=== PATIENT | female | born 1980 | race Caucasian/White ===

== ENCOUNTER 2016-12-04 20:29 | Observation (INO) | payer OTHER ==
[~2016-12-04] VITALS: Ht 160 cm; Wt 87.8 kg
[2016-12-04] MEDS ORDERED: LISI-542 PO (20:44)
[2016-12-04] MEDS ORDERED: METF500T4 PO (20:44)
[2016-12-04] MEDS ORDERED: LISINOPRIL 5 MG TAB PO SCH (21:00)
[2016-12-04 22:25] LABS: BASO # 0.1 K/mm3 (0.0-0.2); BASO % 0.5 % (0.0-1.0); EOS # 0.2 K/mm3 (0.0-0.50); EOS % 1.6 % (0.0-3.0); LARGE UNSTAINED CELL # 0.2 K/mm3 (0.0-0.4); LARGE UNSTAINED CELL % 1.2 % (0.0-4.0); LYMPH # 3.9 K/mm3 (1.5-4.5); LYMPH % 27.8 % (24.0-44.0); MEAN CORPUSCULAR HEMOGLOBIN 29.9 pg (27.0-33.0); MEAN CORPUSCULAR HGB CONC 32.8 g/dl (32.0-36.5); MEAN CORPUSCULAR VOLUME 91.1 fl (80.0-96.0); MONO # 0.5 K/mm3 (0.0-0.8); MONO % 3.5 % (0.0-5.0); NEUTROPHILS # 8.7 K/mm3 (1.8-7.7); NEUTROPHILS % 65.4 % (36.0-66.0); PLATELET COUNT, AUTOMATED 326 k/mm3 (150-450); RED CELL DISTRIBUTION WIDTH 12.8 % (11.5-14.5); WHITE BLOOD COUNT 13.4 K/mm3 (4.0-10.0)
[2016-12-04 22:33] LABS: INR 0.98
[2016-12-04 22:44] LABS: CONTROL LINE HCG INT CTR LINE PRESENT
[2016-12-04 22:58] LABS: ANION GAP 8 MEQ/L (8-16); BLOOD UREA NITROGEN 16 MG/DL (7-18); CALCIUM LEVEL 8.9 MG/DL (8.5-10.1); CARBON DIOXIDE LEVEL 25 MEQ/L (21-32); CHLORIDE LEVEL 107 MEQ/L (98-107); CREATININE FOR GFR 0.71 MG/DL (0.55-1.02); GLOMERULAR FILTRATION RATE > 60.0 (>60); GLUCOSE, FASTING 83 MG/DL (70-105); POTASSIUM SERUM 3.8 MEQ/L (3.5-5.1); SODIUM LEVEL 140 MEQ/L (136-145)
--- NOTE | 2016-12-04 23:40 | REPUSA ---
CT of the head Clinical history: CVA. Technique: Multiple axial CT images were obtained through the head without administration of contrast . Comparison: None. Findings: The ventricles and sulci are symmetric bilaterally. There is no evidence of acute hemorrhag e or infarct. There is no midline shift, mass effect, or extra-axial fluid collection. The osseous st ructures are unremarkable. The visualized paranasal sinuses and mastoid air cells are clear. Impression: Negative study.
[2016-12-05] MEDS ORDERED: TYLE500T78 PO (00:12)
[2016-12-05] MEDS ORDERED: ALBU17IN INH (00:12)
[2016-12-05] MEDS ORDERED: ASPIRIN 325 MG TAB PO ONE (00:15)
[2016-12-05] MEDS ORDERED: ACETAMINOPHEN TAB 650MG DOSE (2X325MG) PO PRN (00:15)
[2016-12-05] MEDS ORDERED: PERCOCET 5MG/325MG TAB PO PRN (00:15)
[2016-12-05] MEDS ORDERED: ONDANSETRON 4MG/2ML VIAL (J2405) IV PRN (00:15)
[2016-12-05] MEDS ORDERED: ALBUTEROL 90 MCG/ACT 8GM HFA INHALER INH PRN (00:30)
--- NOTE | 2016-12-05 01:55 | REP ---
Clinical: Cerebrovascular accident . Comparison: None . Findings: The mediastinum and cardiac silhouette are stable and within normal limits for portable technique. The lung huggins are clear without acute consolidation, effusion, or pneumothorax. Skeletal structures are intact. Impression: Normal portable chest x-ray Signed by Mamadou Hannon MD 12/05/2016 01:47 A
[2016-12-05 02:30] VITALS: BP 117/68
[2016-12-05 02:53] VITALS: BP 117/68
[2016-12-05 04:00] VITALS: BP 120/57
[2016-12-05 06:37] LABS: BASO % 0.5 % (0.0-1.0); EOS # 0.3 K/mm3 (0.0-0.50); EOS % 2.7 % (0.0-3.0); LARGE UNSTAINED CELL # 0.1 K/mm3 (0.0-0.4); LARGE UNSTAINED CELL % 1.5 % (0.0-4.0); LYMPH # 3.8 K/mm3 (1.5-4.5); LYMPH % 37.9 % (24.0-44.0); MEAN CORPUSCULAR HEMOGLOBIN 30.2 pg (27.0-33.0); MEAN CORPUSCULAR HGB CONC 33.3 g/dl (32.0-36.5); MEAN CORPUSCULAR VOLUME 90.8 fl (80.0-96.0); MONO # 0.5 K/mm3 (0.0-0.8); MONO % 4.8 % (0.0-5.0); NEUTROPHILS # 5.1 K/mm3 (1.8-7.7); NEUTROPHILS % 52.6 % (36.0-66.0); PLATELET COUNT, AUTOMATED 319 k/mm3 (150-450); RED CELL DISTRIBUTION WIDTH 12.9 % (11.5-14.5); WHITE BLOOD COUNT 9.7 K/mm3 (4.0-10.0)
[2016-12-05 06:46] LABS: ANION GAP 8 MEQ/L (8-16); BLOOD UREA NITROGEN 17 MG/DL (7-18); CALCIUM LEVEL 8.7 MG/DL (8.5-10.1); CARBON DIOXIDE LEVEL 24 MEQ/L (21-32); CHLORIDE LEVEL 108 MEQ/L (98-107); CREATININE FOR GFR 0.56 MG/DL (0.55-1.02); GLOMERULAR FILTRATION RATE > 60.0 (>60); GLUCOSE, FASTING 89 MG/DL (70-105); POTASSIUM SERUM 3.7 MEQ/L (3.5-5.1); SODIUM LEVEL 140 MEQ/L (136-145)
[2016-12-05 08:00] VITALS: BP 123/67
[2016-12-05] MEDS ORDERED: LORazepam 2 MG/ML VIAL (J2060) IV STA (08:55)
[2016-12-05] MEDS ORDERED: ASPIRIN 81 MG CHEW TABLET PO SCH (09:00)
[2016-12-05] MEDS ORDERED: ENOXAPARIN 40 MG/0.4 ML SYRINGE (J1650) SC SCH (09:00)
--- NOTE | 2016-12-05 09:27 | ECGEPIP ---
Stationary ECG Study [facility] - ED Test Date: 2016-12-04 Pat Name: GAURAV MARTINEZ Department: Room: [place] [address] Gender: F Pole Tester: benson : 1980 Requested By: EMY Palma Order Number: [id number] Reading MD: Ayleen Orlando Measurements Intervals [place] Rate: 84 P: 26 [place]: 176 QRS: 2 QRSD: 93 T: 5 QT: 337 QTc: 399 Interpretive Statements SINUS RHYTHM WITH SINUS ARRHYTHMIA NO PRIOR FOR COMPARISON Electronically Signed On 12-05-2016 9:27:11 EDT by Ayleen Orlando
--- NOTE | 2016-12-05 10:55 | REP ---
REASON: Slurred speech. PRIORS: None. There is no evidence of carotid arterial occlusion or stenosis. There is no evidence of vertebral artery occlusion or stenosis. IMPRESSION: Unremarkable exam. Signed by Atif Kovacs DO 12/05/2016 11:53 A
[2016-12-05 12:00] VITALS: BP 121/75
[2016-12-05 16:00] VITALS: BP 118/79
[2016-12-05] MEDS ORDERED: SUMA25TA3 PO (17:46)
--- NOTE | 2016-12-05 17:52 | CR ---
DATE OF CONSULTATION: 12/05/2016 REFERRING PHYSICIAN: Dr. Carlito Haynes REASON FOR CONSULTATION: Complicated migraine headache versus TIA. The patient is a 36-year-old female with past medical history significant for Factor V Leiden gene mutation and history of migraine headaches. The patient presents with chief complaint of experiencing a headache from two nights prior, described as a very intense throbbing migrainous headache. The patient had pain behind her eyes. She suddenly developed speech disturbance with inability to complete sentences and see certain words. The patient was able to contact primary care provider who recommend she come to the emergency department. While in the ER head CT was negative, MRI of the brain was negative for any acute stroke. MR venogram and MR angiogram of the head were completed though reports are pending. The patient is pending a transthoracic echocardiogram. The patient was started on aspirin and is currently on 162 mg daily. She was discharged on 81 mg aspirin every day. The patient states that she usually has headaches that located behind the eyes and occipital region described as throbbing pain in the front and sharp pains in the back. The patient has associated significant light and sound sensitivity, nausea, dizziness and flashing floating lights. The patient has auras sometimes before migraines. She denies any sensory or motor changes with a migraines, but has recently had speech changes with her migraines. The patient states her migraines occur once a week lasting 2-4 hours and <<1:52>> 06/10. Triggers include bright lights, lack of sleep and stress. FAMILY HISTORY: Positive for migraines in her mother and father. The patient does not have any history of kidney stones and does not have insomnia. REVIEW OF SYSTEMS: 14-point review of systems was obtained and is negative except as per HPI. PAST MEDICAL HISTORY: Factor V Leiden mutation, polycystic ovarian syndrome, TMJ. PAST SURGICAL HISTORY: Cholecystectomy, colonoscopy with polyp removal, asthma, tonsillectomy, right jaw surgery resulting in injury to the right mental nerve with hypoesthesia over the right lower jaw. SOCIAL HISTORY: The patient is a [id number] mom. She denies use of any illicit drugs. She uses one alcoholic beverage per month. She used to smoke tobacco in her teenage years. ALLERGIES: PENICILLIN. MEDICATIONS: None. PHYSICAL EXAMINATION: Blood pressure is 123/67, pulse rate 88, respiratory rate is 20, temperature is 98.76 Fahrenheit, oxygenation 98%. The patient is alert, oriented to person, place and time. Speech, language, comprehension, abdomen repetition are intact. Pupils are 3 mm round, reactive to light. Extraocular movements are intact in all directions. Sensation V1, V2,V3 is intact to light touch. There is no facial weakness on activation. Palate elevates symmetrically. Tongue is midline. No weakness of sternocleidomastoids bilaterally. There is negative pronator drift. Strength is 5/5 including bilateral deltoids, biceps, triceps, handgrip, iliopsoas, quadriceps, anterior tibialis. Deep tendon reflexes are 2+ throughout with decreased Achilles reflexes. Babinski signs are absent. Sensory is intact to light touch, temperature, and vibration throughout. Coordination: Normal [id number] without any signs of ataxia, dysmetria. ASSESSMENT: 1. Complex migraine with speech disturbance, less likely transient ischemic attack (TIA). PLAN: 1. Followup echocardiogram results. Continue aspirin 81 mg by mouth daily. 2. Start sumatriptan 50 mg by mouth as needed onset of migraine max 2 tablets in 24 hours, 4 tablets in 7 days. Can repeat second dose after one to two hours of first dose if no improvement of migraine. 3. Side effect side effect profile reviewed with the patient. The patient has been on this medication in the past with her prior neurologist in [place]. 4. The patient was asked to follow up the [facility] Neurology office after discharge, however she states that she will be leaving the area very soon. MRI results of the brain, MR angiogram of the head and MR venogram results are pending at this time.
--- NOTE | 2016-12-05 21:18 | ECHO ---
DATE OF PROCEDURE: 12/05/2016 REFERRING PHYSICIAN: Carlito Haynes MD INDICATION: Cerebral vascular accident. HEIGHT: 160 cm WEIGHT: 88 kg DIMENSIONS: IVS: 1.2 LV: 3.2 LVPW: 1.2 LA: 3.8 Aorta: 2.4 FINDINGS: The study is of good technical quality. Left ventricle is normal size and systolic function with estimated left ventricular ejection fraction (LVEF) 60-65%. Right ventricle is also normal size and systolic function. Both atria appear normal. All four cardiac valves were well seen and appear normal. Trivial pericardial effusion is noted. Inferior vena cava is normal size. Aortic root is normal. Aortic arch and abdominal aorta were not well seen. Doppler interrogation reveals no aortic stenosis or insufficiency. There is also no mitral stenosis or insufficiency. Trace tricuspid insufficiency is present. Calculated pulmonary artery pressure is within normal limits. Pulmonic valve is also functionally competent. Mitral inflow pattern and tissue Doppler imaging of mitral annulus reveal normal diastolic function. CONCLUSIONS: 1. Study is of good technical quality. 2. Normal left ventricle (LV) size, systolic and diastolic function. Borderline left ventricular hypertrophy (LVH). 3. No significant valvular disease. 4. Normal central venous pressure and likely normal pulmonary artery pressure. COMMENTS: Subacute bacterial endocarditis (SBE) prophylaxis is not recommended. The study does not provide obvious explanation for cerebrovascular accident.
--- NOTE | 2016-12-05 21:46 | HPE ---
DATE OF ADMISSION: 12/04/2016 This is a patient of [facility]. CHIEF COMPLAINT: Difficulty speaking. HISTORY OF PRESENT ILLNESS: This is a 36-year-old now with history of Factor V Leiden deficiency and headache and some sort of right mandibular mass who has been suffering chronic headaches since June 2016. It involves her right mandible and radiates down the right side of her neck and sometimes causes pain behind her right eye. She had a headache yesterday that also caused pain in her left eye. She was quite tired and called her father on the phone and had a period of time when she could think of words she wanted to say but was unable to say them. This was associated with a previous headache in the day which had nausea and a vertiginous feeling to it. She frequently has headaches with aura with visual flashing lights and photophobia and sensitivity to sound as well. She has never had a previous migraine with struggling to get words. She had no focal weakness, no paresthesias, though she has chronic difficulty swallowing since her procedure in June. She has right jaw pain and chronic paresthesia to her right jaw line, otherwise unremarkable. PAST MEDICAL HISTORY: 1. Hypertension. 2. Obesity. 3. Polycystic ovarian disease. 4. Factor V Leiden deficiency. 5. Chronic polyps. PAST SURGICAL HISTORY: 1. Cholecystectomy. 2. Tonsillectomy. MEDICATIONS: - lisinopril 5 mg - metformin 1000 mg daily which she has not been taking - albuterol as needed ALLERGIES: PENICILLIN. SOCIAL HISTORY: She has never been a smoker. FAMILY HISTORY: Notable for a father with myocardial infarction (VT) and mother with a stroke. PHYSICAL EXAMINATION: GENERAL: This is a 36-year-old who appears her stated age. She is awake, mildly anxious, no acute distress. HEENT: Head is normocephalic. Pupils round and reactive. Sclerae anicteric. Nasal septum is midline. Mucosal membranes are moist. NECK: Supple. LUNGS: Breathing is symmetrical and rested. I:E ratio is 1:3. No wheezes, rales or rhonchi. HEART: Regular rate and rhythm. Radial pulses 2+. Capillary refill is less than 2 seconds. ABDOMEN: Soft, doughy, nontender. EXTREMITIES: There is no lower extremity edema. Strength in the lower extremities is 4+, upper extremities is 5+. NEUROLOGY: She has normal mood and affect . LABORATORY DATA: Labs are reviewed. White cell count 13.4, hemoglobin 15, INR 0.98, BUN 16, creatinine 0.71, LDL 130, FILIBERTO is pending. Head CT is unremarkable. EKG shows sinus arrhythmia. ASSESSMENT: This is a 36-year-old with transient ischemic attack (TIA) versus complicated migraine causing aphasia. We <<4:28>> neurologic. I have discussed this case by phone. 1. The plan will be to admit for monitoring, pursue a MRI/MRA of the brain, MR venogram (MRV) of the brain, pain management as needed. Continue aspirin as the patient has Factor V Leiden deficiency. Do neurology checks, monitor her on telemetry. Obtain a 2 D echocardiogram. 2. The patient has hypertension. Can continue lisinopril. 3. The patient has polycystic ovarian disease. She is not taking metformin. Can start that again as an outpatient. 4. Deep venous thrombosis (DVT) prophylaxis ordered.
--- NOTE | 2016-12-06 10:46 | DSES ---
DATE OF ADMISSION: 12/04/2016 DATE OF DISCHARGE: 12/05/2016 REASON FOR ADMISSION: Complicated migraines FINAL DIAGNOSES: 1. Complicated migraines. 2. History of diabetes. 3. Benign lymph node. HISTORY OF PRESENT ILLNESS: The patient is a 36-year-old female presented to the emergency room complaining of jaw pain with aphagia that started earlier that day. She got admitted for possible complicated migraine workup versus a possible stroke. Neurology was consulted. HOSPITAL COURSE: The patient underwent a CT scan of her head, which was negative. She also underwent an MRI venogram as well as an MRI angiograph and a brain MRI and final results are currently pending. However, her neurological symptoms had resolved and the patient was seen by Dr. Carreno. He felt that the patient's symptoms were likely related to complicated migraines. He recommended the patient to be discharged and followup with neurology when she moves to [place] and be resumed on her sumatriptan that she used to take in the past, 25 mg, a maximum of 2 a day and 7 a week. The patient was instructed if symptoms were to resume she is to report back to the emergency room. DISCHARGE CONDITION: Stable.
--- NOTE | 2016-12-11 12:14 | REP ---
REASON FOR EXAM: Aphagia. Initial stat interpretation given on 12/05/2016, the day the exam was performed. Prior examinations were attempting to be obtained. Recent information reveals that there are no priors for comparison. TECHNIQUE: MIP reformatted 3D images of the [place] and proximal intracranial vasculature were obtained. The source images wee obtained in the axial scan plane using gradient-echo technique. FINDINGS: There is no evidence of an aneurysm or AVM. Perfusion to the hemispheres is symmetric. There is no evidence of significant signal decrease that would be considered consistent with an area of occlusion or severe stenosis. IMPRESSION: Unremarkable brain MRA. Signed by Atif Kovacs DO 12/11/2016 12:59 P
--- NOTE | 2016-12-11 12:14 | REP ---
REASON FOR EXAM: Aphasic episode. Initial interpretation given emergently at the time the examination was performed. We have been waiting for prior examinations for comparison. Information has just revealed there are no priors for comparison. TECHNIQUE: Sagittal T1. Axial T2, FLAIR, DWI and ADC. FINDINGS: The craniocervical junction is normal. There is no cerebellar tonsillar ectopia. The visualized portions of the spinal cord and neural canal are within normal limits. The ventricles and sulci are within normal limits for the patient's age. There are no extra-axial fluid collections. There is o shift of the midline structures. The deep cerebral white matter is within normal limits. Diffusion weighted images and ADC mapping shows no signal abnormality. The orbital and petrous structures, cerebellopontine angles, and posterior fossa are within normal limits. The sella turcica, cavernous and paracavernous structures are within normal limits. The visualized portions of the paranasal sinuses and the mastoid air cells are clear. IMPRESSION: Unremarkable MRI examination of the brain. Signed by Atif Kovacs DO 12/11/2016 12:59 P
--- NOTE | 2016-12-11 12:16 | REP ---
MR venography without and with IV gadolinium: History: TIA. MR venogram. Preliminary report is provided at the time examination by Dr. Kovacs. No comparison study. Technique: T2-weighted MR venography is acquired. Maximal intensity projection images are generated and viewed rotationally. Source images are viewed. MR venographic findings: Sagittal, straight, and sigmoid sinuses are patent bilaterally. No filling defect or focal stenosis is seen to suggest venous sinus thrombosis. The visualized cortical veins appear normal and symmetric. Impression: Unremarkable MR venography. Signed by Samuel Horta MD 12/11/2016 01:19 P
== END 2016-12-05 18:00 | disposition home or self-care (01) ==
LOC: M ED 21:52 → M ED INP 21:53
PROVIDERS: ADMIT Internal Medicine; ATTEND Internal Medicine
DX: G43.909 Migraine, unspecified, not intractable, without status migrainosus (principal); I10 Essential (primary) hypertension; E66.9 Obesity, unspecified; E28.2 Polycystic ovarian syndrome; D68.2 Hereditary deficiency of other clotting factors; Z79.899 Other long term (current) drug therapy; Z88.0 Allergy status to penicillin; Z91.030 Bee allergy status
CPT/HCPCS: 36415; 70450; 70544; 70546; 70549; 70551; 71010; 80048; 80061; 82550; 82553; 84703; 85025; 85610; 85652; 85730; 86038; 86140; 86850; 86900; 86901; 93005; 93041; 94760; 96372; 96374; 96375; 99285; A9576; J1650; J2060; J2405